=== PATIENT | male | born 1940 | race Asian ===

== ENCOUNTER 2020-12-15 04:59 | Inpatient (IN) | payer OTHER ==
[~2020-12-15] VITALS: Ht 167.6 cm; Wt 76.7 kg
[2020-12-15] MEDS ORDERED: DILTIAZEM HCL 125 MG in DEXTROSE 5%-WATER 100 ML IV STA (05:13)
[2020-12-15] MEDS ORDERED: DILTIAZEM HCL 5 MG/ML 5 ML VIAL IVP ONE (05:15)
[2020-12-15] MEDS ORDERED: PROPOFOL 1000 MG/ISO-OSM 100 ML IV PRN (05:15)
[2020-12-15] MEDS ORDERED: DILTIAZEM HCL 125 MG in DEXTROSE 5%-WATER 100 ML IV PRN (05:15)
[2020-12-15 05:23] LABS: BASOPHILS % (AUTO) 1.1 % (0.0-2.0); EOSINOPHILS % (AUTO) 0.4 % (1.0-6.0); HEMATOCRIT 36.6 % (41-53); HEMOGLOBIN 11.5 g/dL (13.5-17.5); LYMPHOCYTES # (AUTO) 1.7 K/uL (1.0-4.8); LYMPHOCYTES % (AUTO) 11.5 % (22.0-44.0); MEAN CORPUSCULAR HEMOGLOBIN 28.8 pg (26.0-34.0); MEAN CORPUSCULAR HGB CONC 31.3 G/dL (31.0-37.0); MEAN CORPUSCULAR VOLUME 92 fL (80-100); MONOCYTES % (AUTO) 7.1 % (2.0-9.0); NEUTROPHILS # (AUTO) 11.9 K/uL (1.8-7.7); NEUTROPHILS % (AUTO) 79.9 % (40.0-70.0); PLATELET COUNT (AUTO) 162 K/uL (150-450); RED BLOOD CELL COUNT(AUTO) 3.98 MIL/uL (4.50-5.90); RED CELL DISTRIBUTION WIDTH 14.9 % (11.5-14.5)
[2020-12-15] MEDS ORDERED: ACETAMINOPHEN 650 MG/ISO-OSM 65 ML IV ONE (05:30)
[2020-12-15] MEDS ORDERED: CefTRIAXone 1 GM/DEXTROSE 50 ML IV ONE (05:30)
[2020-12-15 05:33] LABS: ANION GAP 11 mmol/L (8-16); CALCIUM, TOTAL 8.1 mg/dL (8.8-10.5); CARBON DIOXIDE 23 mmol/L (22-29); CHLORIDE 102 mmol/L (98-107); CREATININE 1.49 mg/dL (0.60-1.30); GLOMERULAR FILTR. RATE CALC 45 mL/min (>60); GLUCOSE,RANDOM 195 mg/dL (70-110); POTASSIUM 4.6 mmol/L (3.5-5.1); SODIUM SERUM 136 mmol/L (136-145); UREA NITROGEN, BLOOD 28 mg/dL (7-18)
[2020-12-15 05:35] LABS: INR 1.3 (0.9-1.1); PROTHROMBIN TIME 13.3 SEC (9.4-11.6)
[2020-12-15 05:36] LABS: APPEARANCE,URINE CLOUDY (CLEAR); GLUCOSE, URINE (UA) NEGATIVE (NEGATIVE); KETONES,URINE NEGATIVE (NEGATIVE); LEUKOCYTE ESTERASE ,URINE SMALL (NEGATIVE); NITRATE,URINE NEGATIVE (NEGATIVE); OCCULT BLOOD,URINE LARGE (NEGATIVE); PH,URINE 5.5 (5.0-8.0); PROTEIN,URINE POS 1+ (NEGATIVE)
[2020-12-15] MEDS ORDERED: 0.9% SODIUM CHLORIDE 10 ML SYRINGE IVP PRN (05:45)
[2020-12-15] MEDS ORDERED: ACETAMINOPHEN 325 MG TABLET PO PRN ×2 (05:45→08:00)
[2020-12-15] MEDS ORDERED: ONDANSETRON HCL 4 MG/2 ML VIAL IVP PRN ×2 (05:45→08:00)
[2020-12-15 05:49] LABS: COVID AG,FIA SOURCE NASOPHARYNGEAL
[2020-12-15 05:55] LABS: ABG A-A DIFF O2 540.5 mmHg (10-20.0); ABG BASE EXCESS -4.9 mmol/L (-2.0-3.0); ABG CARBOXYHEMOGLOBIN 0.4 % (0.0-1.5); ABG HCO3 19.9 mmol/L (22.0-26.0); ABG METHEMOGLOBIN 0.3 % (0.0-1.5); ABG OXYGEN CONTENT 14.8 mL/dL (15.0-23.0); ABG OXYHEMOGLOBIN 93.3 % (94.0-100.0); ABG PH 7.163 (7.35-7.450); ABG TOTAL HEMOGLOBIN 11.2 G/dL (12.0-18.0); PO2, ARTERIAL BG 99.4 mmHg (71.0-79.0); SOURCE, BLOOD GAS ARTERIAL; TEMPERATURE, FAHRENHEIT, BG 101.8 FAHREN (96.0-98.6)
[2020-12-15 05:56] LABS: ABG PCO2 68 mmHg (35-45); O2 DEVICE,BLOOD GAS VENTILATOR (ROOM AIR); PEEP,BG 5 cm H2O; SITE, BLOOD GAS RT RADIAL; VT, ABG 475 ml
[2020-12-15 05:57] LABS: ALANINE AMINOTRANSFERASE 131 U/L (12-78); ALBUMIN 1.8 g/dL (3.4-5.0); ALKALINE PHOSPHATASE 160 U/L (46-116); ASPARTATE AMINOTRANSFERASE 144 U/L (15-37); BILIRUBIN,TOTAL 1.4 mg/dL (0.1-1.0); CREATINE KINASE, TOTAL ONLY 88 U/L (39-308); TOTAL PROTEIN, SERUM 6.7 g/dL (6.4-8.2)
[2020-12-15] MEDS ORDERED: SODIUM CHLORIDE 0.9% IV ONE (06:00)
[2020-12-15] MEDS ORDERED: HEPARIN SODIUM 25000 UNITS/D5W 250 ML IV PRN (06:00)
[2020-12-15] MEDS ORDERED: HEPARIN SODIUM,PORCINE 5,000 UNITS/ML VIAL IVP ONE ×2 (06:00→12:30)
[2020-12-15] MEDS ORDERED: HEPARIN SODIUM,PORCINE 5,000 UNITS/ML VIAL IVP PRN ×4 (06:00→12:30)
[2020-12-15 06:01] LABS: B-TYPE NATRIURETIC PEPTIDE 1160 pg/mL (0-100)
[2020-12-15 06:16] LABS: BILIRUBIN,URINE PRELIM. POSITIVE (NEGATIVE)
[2020-12-15 06:22] LABS: BACTERIA,URINE Few /HPF (None Seen); COARSE GRANULAR CASTS,URINE 0-2 /LPF (None Seen); SQUAMOUS EPITHELIAL CELL,UR Few /LPF (None Seen)
[2020-12-15 06:25] LABS: LACTIC ACID 4.8 mmol/L (0.4-2.0)
[2020-12-15 06:39] LABS: LACTATE DEHYDROGENASE 423 U/L (85-227)
[2020-12-15] MEDS ORDERED: AMIODARONE HCL 360 MG in DEXTROSE 5%-WATER 242.8 ML IV ONE (07:30)
[2020-12-15 08:00] VITALS: BP 94/66
[2020-12-15] MEDS ORDERED: REMDESIVIR 200 MG in SODIUM CHLORIDE 0.9% 250 ML IV ONE (08:00)
[2020-12-15] MEDS ORDERED: DEXTROSE 50%-WATER 25 GM/50 ML SYRINGE IVP PRN (08:00)
[2020-12-15 09:00] VITALS: BP 130/64
[2020-12-15] MEDS ORDERED: DEXAMETHASONE SOD PHOS 4 MG/ML VIAL IVP SCH (09:00)
[2020-12-15] MEDS ORDERED: FAMOTIDINE 20 MG TABLET PO SCH (09:00)
[2020-12-15] MEDS: DOCUSATE SODIUM 100 MG CAPSULE PO SCH ×2 (09:18→20:38)
[2020-12-15] MEDS: PANTOPRAZOLE SODIUM 40 MG/VIAL IVP SCH ×2 (09:28→20:38)
[2020-12-15 09:46] LABS: ABG A-A DIFF O2 568.6 mmHg (10-20.0); ABG BASE EXCESS -4.7 mmol/L (-2.0-3.0); ABG CARBOXYHEMOGLOBIN 0.3 % (0.0-1.5); ABG HCO3 20.6 mmol/L (22.0-26.0); ABG METHEMOGLOBIN 0.3 % (0.0-1.5); ABG OXYGEN SATURATION 97.2 % (95.0-98.0); ABG OXYHEMOGLOBIN 96.6 % (94.0-100.0); ABG PCO2 46 mmHg (35-45); ABG PH 7.297 (7.35-7.450); ABG TOTAL HEMOGLOBIN 11.7 G/dL (12.0-18.0); PO2, ARTERIAL BG 99.2 mmHg (71.0-79.0); SOURCE, BLOOD GAS ARTERIAL; TEMPERATURE, FAHRENHEIT, BG 98.4 FAHREN (96.0-98.6)
[2020-12-15 09:47] LABS: O2 DEVICE,BLOOD GAS VENTILATOR (ROOM AIR); PEEP,BG 5 cm H2O; SITE, BLOOD GAS RT BRACHIAL; VT, ABG 475 ml
[2020-12-15 10:00] VITALS: BP 139/72
[2020-12-15 12:00] VITALS: BP 99/45
[2020-12-15] MEDS: HEPARIN SODIUM 25000 UNITS/D5W 250 ML IV PRN (12:46)
[2020-12-15] MEDS ORDERED: AMIODARONE HCL 540 MG in DEXTROSE 5%-WATER 239.2 ML IV ONE (13:30)
[2020-12-15] MEDS: INSULIN LISPRO 100 UNITS/ML SQ PRN ×3 (14:49→21:32)
[2020-12-15] MEDS ORDERED: RINGERS SOLUTION,LACTATED 1,000 ML IV ONE ×2 (15:15→16:45)
[2020-12-15 16:00] VITALS: BP 86/60
[2020-12-15] MEDS ORDERED: AMIODARONE HCL 50 MG/ML 3 ML VIAL IVP ONE (17:16)
[2020-12-15] MEDS: CefTRIAXone SODIUM 2 GM in DEXTROSE 5%-WATER 50 ML IV SCH (17:38)
[2020-12-15] MEDS: NOREPINEPHRINE 4 MG/D5%-WATER 250 ML IV PRN (17:39)
[2020-12-15 17:52] LABS: C-REACTIVE PROTEIN QUANT 12.46 mg/dL (0.00-0.30); FERRITIN 3685 ng/mL (26-388)
[2020-12-15] MEDS: DOXYCYCLINE HYCLATE 100 MG in DEXTROSE 5%-WATER 100 ML IV SCH (18:30)
[2020-12-15] MEDS: FentaNYL CIT 1000MCG/0.9% NACL 100 ML IV PRN (18:30)
[2020-12-15] MEDS: MethylPREDNISolone SOD SUCC 125 MG/2 ML VIAL IVP SCH (18:46)
[2020-12-15 20:00] VITALS: BP 125/52
[2020-12-16] VITALS: BP 103/46
[2020-12-16] MEDS: MethylPREDNISolone SOD SUCC 125 MG/2 ML VIAL IVP SCH ×4 (00:11→19:42)
[2020-12-16 00:34] LABS: GLUCOSE,POINT OF CARE 192 MG/DL (70-110)
[2020-12-16 00:34] LABS: GLUCOSE,POINT OF CARE 165 MG/DL (70-110)
[2020-12-16 00:34] LABS: GLUCOSE,POINT OF CARE 200 MG/DL (70-110)
[2020-12-16] MEDS: PROPOFOL 1000 MG/ISO-OSM 100 ML IV PRN ×2 (01:46→17:20)
[2020-12-16] MEDS ORDERED: SODIUM CHLORIDE 0.9% 250 ML IV ONE ×3 (01:55→20:10)
[2020-12-16 04:00] VITALS: BP 127/81
[2020-12-16] MEDS: DOXYCYCLINE HYCLATE 100 MG in DEXTROSE 5%-WATER 100 ML IV SCH ×2 (05:08→19:43)
[2020-12-16 06:53] LABS: BASOPHILS % (AUTO) 0.2 % (0.0-2.0); EOSINOPHILS % (AUTO) 0.1 % (1.0-6.0); HEMATOCRIT 34.5 % (41-53); HEMOGLOBIN 11.1 g/dL (13.5-17.5); LYMPHOCYTES # (AUTO) 0.7 K/uL (1.0-4.8); LYMPHOCYTES % (AUTO) 6.7 % (22.0-44.0); MEAN CORPUSCULAR HEMOGLOBIN 29.1 pg (26.0-34.0); MEAN CORPUSCULAR HGB CONC 32.2 G/dL (31.0-37.0); MEAN CORPUSCULAR VOLUME 90 fL (80-100); MONOCYTES # (AUTO) 0.5 K/uL (0.1-1.0); MONOCYTES % (AUTO) 4.8 % (2.0-9.0); NEUTROPHILS # (AUTO) 9.2 K/uL (1.8-7.7); PLATELET COUNT (AUTO) 122 K/uL (150-450); RED BLOOD CELL COUNT(AUTO) 3.81 MIL/uL (4.50-5.90); RED CELL DISTRIBUTION WIDTH 14.9 % (11.5-14.5)
[2020-12-16 06:56] LABS: NEUTROPHILS % (AUTO) 88.2 % (40.0-70.0)
[2020-12-16] MEDS: NOREPINEPHRINE 4 MG/D5%-WATER 250 ML IV PRN ×2 (06:58→07:43)
[2020-12-16 07:14] LABS: D-DIMER 11.63 mg/L FEU (0.00-0.50)
[2020-12-16] MEDS ORDERED: AMIODARONE HCL 750 MG in DEXTROSE 5%-WATER 485 ML IV SCH (07:30)
[2020-12-16] MEDS: HEPARIN SODIUM 25000 UNITS/D5W 250 ML IV PRN (07:47)
[2020-12-16 07:55] LABS: ALBUMIN 1.6 g/dL (3.4-5.0); BILIRUBIN,TOTAL 0.6 mg/dL (0.1-1.0); C-REACTIVE PROTEIN QUANT 11.83 mg/dL (0.00-0.30); CALCIUM, TOTAL 7.5 mg/dL (8.8-10.5); CREATININE 2.08 mg/dL (0.60-1.30); POTASSIUM 4.2 mmol/L (3.5-5.1); TOTAL PROTEIN, SERUM 5.8 g/dL (6.4-8.2)
[2020-12-16 08:00] VITALS: BP 119/49
[2020-12-16] MEDS ORDERED: REMDESIVIR 100 MG in SODIUM CHLORIDE 0.9% 250 ML IV SCH (08:00)
[2020-12-16] MEDS: PANTOPRAZOLE SODIUM 40 MG/VIAL IVP SCH ×2 (10:00→20:38)
[2020-12-16] MEDS: DOCUSATE SODIUM 100 MG CAPSULE PO SCH ×2 (10:01→20:38)
[2020-12-16 12:00] VITALS: BP 122/45
[2020-12-16] MEDS: DAPTOMYCIN 450 MG in SODIUM CHLORIDE 0.9% 50 ML IV SCH (12:20)
[2020-12-16 16:00] VITALS: BP 135/49
[2020-12-16] MEDS: CefTRIAXone SODIUM 2 GM in DEXTROSE 5%-WATER 50 ML IV SCH (17:56)
[2020-12-16] MEDS: INSULIN LISPRO 100 UNITS/ML SQ PRN ×2 (17:58→20:50)
[2020-12-16 20:00] VITALS: BP 105/39
[2020-12-16 20:05] LABS: GLUCOSE,POINT OF CARE 184 MG/DL (70-110)
[2020-12-16 20:54] LABS: GLUCOSE,POINT OF CARE 179 MG/DL (70-110)
[2020-12-16 22:23] LABS: GLUCOSE,POINT OF CARE 179 MG/DL (70-110)
[2020-12-17] VITALS: BP 99/39
[2020-12-17] MEDS: MethylPREDNISolone SOD SUCC 125 MG/2 ML VIAL IVP SCH ×4 (00:03→18:22)
[2020-12-17] MEDS: NOREPINEPHRINE 4 MG/D5%-WATER 250 ML IV PRN ×2 (02:48→14:05)
[2020-12-17 04:00] VITALS: BP 120/44
[2020-12-17] MEDS: DOXYCYCLINE HYCLATE 100 MG in DEXTROSE 5%-WATER 100 ML IV SCH (04:59)
[2020-12-17 05:56] LABS: BASOPHILS % (AUTO) 0.1 % (0.0-2.0); EOSINOPHILS % (AUTO) 0 % (1.0-6.0); HEMATOCRIT 35.9 % (41-53); HEMOGLOBIN 11.7 g/dL (13.5-17.5); LYMPHOCYTES # (AUTO) 0.7 K/uL (1.0-4.8); LYMPHOCYTES % (AUTO) 5.4 % (22.0-44.0); MEAN CORPUSCULAR HEMOGLOBIN 29.1 pg (26.0-34.0); MEAN CORPUSCULAR HGB CONC 32.7 G/dL (31.0-37.0); MEAN CORPUSCULAR VOLUME 89 fL (80-100); MONOCYTES # (AUTO) 0.7 K/uL (0.1-1.0); MONOCYTES % (AUTO) 4.9 % (2.0-9.0); NEUTROPHILS # (AUTO) 12.3 K/uL (1.8-7.7); PLATELET COUNT (AUTO) 144 K/uL (150-450); RED BLOOD CELL COUNT(AUTO) 4.03 MIL/uL (4.50-5.90); RED CELL DISTRIBUTION WIDTH 15.1 % (11.5-14.5)
[2020-12-17] MEDS: INSULIN LISPRO 100 UNITS/ML SQ PRN ×3 (05:59→18:22)
[2020-12-17] MEDS: PROPOFOL 1000 MG/ISO-OSM 100 ML IV PRN ×2 (06:01→19:38)
[2020-12-17 06:04] LABS: NEUTROPHILS % (AUTO) 89.6 % (40.0-70.0)
[2020-12-17 06:08] LABS: D-DIMER 5.85 mg/L FEU (0.00-0.50)
[2020-12-17] MEDS: FentaNYL CIT 1000MCG/0.9% NACL 100 ML IV PRN (06:31)
[2020-12-17 06:49] LABS: ALBUMIN 1.5 g/dL (3.4-5.0); BILIRUBIN,TOTAL 0.5 mg/dL (0.1-1.0); C-REACTIVE PROTEIN QUANT 7.46 mg/dL (0.00-0.30); CALCIUM, TOTAL 7.4 mg/dL (8.8-10.5); CREATININE 2.43 mg/dL (0.60-1.30); POTASSIUM 3.7 mmol/L (3.5-5.1); TOTAL PROTEIN, SERUM 5.7 g/dL (6.4-8.2)
[2020-12-17 06:55] LABS: GLUCOSE,POINT OF CARE 215 MG/DL (70-110)
[2020-12-17 08:00] VITALS: BP 144/41
[2020-12-17] MEDS: PANTOPRAZOLE SODIUM 40 MG/VIAL IVP SCH ×2 (09:00→20:56)
[2020-12-17] MEDS: DOCUSATE SODIUM 100 MG CAPSULE PO SCH ×2 (09:00→20:57)
[2020-12-17] MEDS: AMIODARONE HCL 200 MG TABLET PO SCH ×3 (09:00→20:56)
[2020-12-17] MEDS: DAPTOMYCIN 450 MG in SODIUM CHLORIDE 0.9% 50 ML IV SCH (10:57)
[2020-12-17 12:00] VITALS: BP 116/43
[2020-12-17 13:40] LABS: GLUCOSE,POINT OF CARE 200 MG/DL (70-110)
[2020-12-17] MEDS: CITRIC ACID/SODIUM CITRATE 30 ML SOLUTION UDCUP PO SCH ×2 (14:03→20:56)
[2020-12-17 15:17] LABS: APPEARANCE,URINE CLOUDY (CLEAR); BILIRUBIN,URINE NEGATIVE (NEGATIVE); GLUCOSE, URINE (UA) NEGATIVE (NEGATIVE); KETONES,URINE NEGATIVE (NEGATIVE); LEUKOCYTE ESTERASE ,URINE SMALL (NEGATIVE); NITRATE,URINE NEGATIVE (NEGATIVE); OCCULT BLOOD,URINE MODERATE (NEGATIVE); PH,URINE 5.5 (5.0-8.0); PROTEIN,URINE NEGATIVE (NEGATIVE); UROBILINOGEN,URINE 0.2 mg/dL (<=1.0)
[2020-12-17 15:34] LABS: BACTERIA,URINE Few /HPF (None Seen); SQUAMOUS EPITHELIAL CELL,UR Few /LPF (None Seen)
[2020-12-17 16:00] VITALS: BP 108/36
[2020-12-17] MEDS: CefTRIAXone SODIUM 2 GM in DEXTROSE 5%-WATER 50 ML IV SCH (16:18)
[2020-12-17] MEDS: HEPARIN SODIUM 25000 UNITS/D5W 250 ML IV PRN (16:22)
[2020-12-17 20:00] VITALS: BP 130/45
[2020-12-17] MEDS ORDERED: LORazepam 2 MG/ML VIAL IVP PRN (20:00)
[2020-12-17 21:05] LABS: S PNEUMO SOURCE Urine; STREP PNEUMONIAE AG URINE Negative (Negative)
[2020-12-17 22:11] LABS: GLUCOSE,POINT OF CARE 174 MG/DL (70-110)
[2020-12-18] VITALS: BP 126/42
[2020-12-18] MEDS: MethylPREDNISolone SOD SUCC 125 MG/2 ML VIAL IVP SCH ×4 (00:24→17:41)
[2020-12-18] MEDS: INSULIN LISPRO 100 UNITS/ML SQ PRN ×4 (00:36→19:04)
[2020-12-18 04:00] VITALS: BP 131/43
[2020-12-18 04:45] LABS: BASOPHILS % (AUTO) 0.2 % (0.0-2.0); EOSINOPHILS % (AUTO) 0 % (1.0-6.0); HEMATOCRIT 38.5 % (41-53); HEMOGLOBIN 12.3 g/dL (13.5-17.5); LYMPHOCYTES # (AUTO) 0.9 K/uL (1.0-4.8); MEAN CORPUSCULAR HEMOGLOBIN 28.4 pg (26.0-34.0); MEAN CORPUSCULAR HGB CONC 31.9 G/dL (31.0-37.0); MEAN CORPUSCULAR VOLUME 89 fL (80-100); MONOCYTES # (AUTO) 1.1 K/uL (0.1-1.0); NEUTROPHILS # (AUTO) 16.5 K/uL (1.8-7.7); PLATELET COUNT (AUTO) 188 K/uL (150-450); RED BLOOD CELL COUNT(AUTO) 4.32 MIL/uL (4.50-5.90); RED CELL DISTRIBUTION WIDTH 14.9 % (11.5-14.5)
[2020-12-18 04:59] LABS: NEUTROPHILS % (AUTO) 88.8 % (40.0-70.0)
[2020-12-18 05:01] LABS: ALBUMIN 1.6 g/dL (3.4-5.0); BILIRUBIN,TOTAL 0.5 mg/dL (0.1-1.0); CALCIUM, TOTAL 7.5 mg/dL (8.8-10.5); CREATININE 2.69 mg/dL (0.60-1.30); MAGNESIUM 2.5 mg/dL (1.80-2.40); POTASSIUM 3.6 mmol/L (3.5-5.1); TOTAL PROTEIN, SERUM 5.8 g/dL (6.4-8.2)
[2020-12-18 08:00] VITALS: BP 136/40
[2020-12-18] MEDS: DOCUSATE SODIUM 100 MG CAPSULE PO SCH ×2 (09:22→21:00)
[2020-12-18] MEDS: CITRIC ACID/SODIUM CITRATE 30 ML SOLUTION UDCUP PO SCH ×2 (09:22→21:00)
[2020-12-18] MEDS: AMIODARONE HCL 200 MG TABLET PO SCH ×3 (09:22→21:00)
[2020-12-18] MEDS: PANTOPRAZOLE SODIUM 40 MG/VIAL IVP SCH ×2 (09:23→21:46)
[2020-12-18] MEDS: NOREPINEPHRINE 4 MG/D5%-WATER 250 ML IV PRN (09:26)
[2020-12-18 10:55] LABS: ABG BASE EXCESS -0.9 mmol/L (-2.0-3.0); ABG CARBOXYHEMOGLOBIN 0.5 % (0.0-1.5); ABG HCO3 24.4 mmol/L (22.0-26.0); ABG METHEMOGLOBIN 0.3 % (0.0-1.5); ABG OXYGEN CONTENT 17.2 mL/dL (15.0-23.0); ABG OXYGEN SATURATION 95.5 % (95.0-98.0); ABG OXYHEMOGLOBIN 94.7 % (94.0-100.0); ABG PCO2 31 mmHg (35-45); ABG TOTAL HEMOGLOBIN 12.9 G/dL (12.0-18.0); CPAP, BG 5 cm H2O; O2 DEVICE,BLOOD GAS VENTILATOR (ROOM AIR); PO2, ARTERIAL BG 74.4 mmHg (71.0-79.0); PRESSURE SUPPORT, BG 8 cm H2O; SITE, BLOOD GAS LFT RADIAL; SOURCE, BLOOD GAS ARTERIAL; SPONTANEOUS VT, BG 625 ml; TEMPERATURE, FAHRENHEIT, BG 98.4 FAHREN (96.0-98.6); VENT MODE, BG CPAP (ROOM AIR)
[2020-12-18 12:00] VITALS: BP 110/41
[2020-12-18] MEDS ORDERED: AMIODARONE HCL 150 MG in DEXTROSE 5%-WATER 97 ML IV ONE (13:50)
[2020-12-18] MEDS ORDERED: AMIODARONE HCL 360 MG in DEXTROSE 5%-WATER 242.8 ML IV ONE (14:00)
[2020-12-18 14:04] LABS: GLUCOSE,POINT OF CARE 221 MG/DL (70-110)
[2020-12-18 14:04] LABS: GLUCOSE,POINT OF CARE 177 MG/DL (70-110)
[2020-12-18 16:00] VITALS: BP 101/51
[2020-12-18] MEDS: CefTRIAXone SODIUM 2 GM in DEXTROSE 5%-WATER 50 ML IV SCH (17:40)
[2020-12-18] MEDS ORDERED: AMIODARONE HCL 540 MG in DEXTROSE 5%-WATER 239.2 ML IV ONE (20:00)
[2020-12-18 20:06] VITALS: BP 114/52
[2020-12-19 00:06] VITALS: BP 117/43
[2020-12-19] MEDS: MethylPREDNISolone SOD SUCC 40 MG/ML VIAL IVP SCH ×5 (00:15→23:21)
[2020-12-19] MEDS: INSULIN LISPRO 100 UNITS/ML SQ PRN ×5 (00:16→23:26)
[2020-12-19 04:02] VITALS: BP 129/48
[2020-12-19 05:07] LABS: GLUCOSE,POINT OF CARE 193 MG/DL (70-110)
[2020-12-19 05:07] LABS: GLUCOSE,POINT OF CARE 171 MG/DL (70-110)
[2020-12-19 05:07] LABS: GLUCOSE,POINT OF CARE 199 MG/DL (70-110)
[2020-12-19 07:01] LABS: BASOPHILS % (AUTO) 0.1 % (0.0-2.0); EOSINOPHILS % (AUTO) 0 % (1.0-6.0); HEMATOCRIT 35.7 % (41-53); HEMOGLOBIN 11.5 g/dL (13.5-17.5); LYMPHOCYTES # (AUTO) 0.8 K/uL (1.0-4.8); LYMPHOCYTES % (AUTO) 5.6 % (22.0-44.0); MEAN CORPUSCULAR HEMOGLOBIN 28.5 pg (26.0-34.0); MEAN CORPUSCULAR HGB CONC 32.3 G/dL (31.0-37.0); MEAN CORPUSCULAR VOLUME 89 fL (80-100); MONOCYTES # (AUTO) 0.9 K/uL (0.1-1.0); MONOCYTES % (AUTO) 6.7 % (2.0-9.0); NEUTROPHILS # (AUTO) 12.2 K/uL (1.8-7.7); PLATELET COUNT (AUTO) 141 K/uL (150-450); RED BLOOD CELL COUNT(AUTO) 4.04 MIL/uL (4.50-5.90)
[2020-12-19 07:48] LABS: NEUTROPHILS % (AUTO) 87.6 % (40.0-70.0)
[2020-12-19 07:57] LABS: ALBUMIN 1.6 g/dL (3.4-5.0); BILIRUBIN,TOTAL 0.6 mg/dL (0.1-1.0); C-REACTIVE PROTEIN QUANT 2.73 mg/dL (0.00-0.30); CALCIUM, TOTAL 7.4 mg/dL (8.8-10.5); CREATININE 2.64 mg/dL (0.60-1.30); POTASSIUM 3.5 mmol/L (3.5-5.1); TOTAL PROTEIN, SERUM 5.4 g/dL (6.4-8.2)
[2020-12-19 08:01] VITALS: BP 111/37
[2020-12-19 08:12] LABS: GLUCOSE,POINT OF CARE 172 MG/DL (70-110)
[2020-12-19] MEDS: PANTOPRAZOLE SODIUM 40 MG/VIAL IVP SCH ×2 (08:41→21:55)
[2020-12-19] MEDS: CITRIC ACID/SODIUM CITRATE 30 ML SOLUTION UDCUP PO SCH ×2 (09:00→23:18)
[2020-12-19] MEDS: AMIODARONE HCL 200 MG TABLET PO SCH ×3 (09:00→21:56)
[2020-12-19] MEDS: DOCUSATE SODIUM 100 MG CAPSULE PO SCH ×2 (09:00→21:56)
[2020-12-19] MEDS: ETHYL ALCOHOL 62% ANTISEPTIC NASAL INHALANT 0.6 ML AMPUL NASAL SCH ×2 (09:15→21:55)
[2020-12-19] MEDS ORDERED: DAPTOMYCIN 450 MG in SODIUM CHLORIDE 0.9% 50 ML IV SCH (11:00)
[2020-12-19 12:00] VITALS: BP 126/49
[2020-12-19] MEDS ORDERED: SODIUM CHLORIDE 0.9% 1,000 ML ONE (13:27)
[2020-12-19] MEDS ORDERED: AMIODARONE HCL 750 MG in DEXTROSE 5%-WATER 485 ML IV SCH (14:00)
[2020-12-19] MEDS ORDERED: SODIUM CHLORIDE 0.9% 250 ML IV ONE (15:41)
[2020-12-19] MEDS: CefTRIAXone SODIUM 2 GM in DEXTROSE 5%-WATER 50 ML IV SCH (15:47)
[2020-12-19 16:00] VITALS: BP 125/46
[2020-12-19 19:23] LABS: GLUCOSE,POINT OF CARE 175 MG/DL (70-110)
[2020-12-19 20:01] VITALS: BP 136/58
[2020-12-19 20:19] LABS: GLUCOSE,POINT OF CARE 156 MG/DL (70-110)
[2020-12-19] MEDS: HEPARIN SODIUM 25000 UNITS/D5W 250 ML IV PRN (23:41)
[2020-12-20 00:01] VITALS: BP 152/55
[2020-12-20] MEDS ORDERED: SODIUM CHLORIDE 0.9% 250 ML IV ONE ×2 (03:33→16:57)
[2020-12-20 04:02] VITALS: BP 141/61
[2020-12-20 04:52] LABS: GLUCOSE,POINT OF CARE 172 MG/DL (70-110)
[2020-12-20 05:22] LABS: BASOPHILS % (AUTO) 0.1 % (0.0-2.0); EOSINOPHILS % (AUTO) 0 % (1.0-6.0); HEMATOCRIT 34.3 % (41-53); HEMOGLOBIN 11.1 g/dL (13.5-17.5); LYMPHOCYTES # (AUTO) 0.4 K/uL (1.0-4.8); LYMPHOCYTES % (AUTO) 2.9 % (22.0-44.0); MEAN CORPUSCULAR HEMOGLOBIN 28.9 pg (26.0-34.0); MEAN CORPUSCULAR HGB CONC 32.4 G/dL (31.0-37.0); MEAN CORPUSCULAR VOLUME 89 fL (80-100); MONOCYTES # (AUTO) 1.1 K/uL (0.1-1.0); MONOCYTES % (AUTO) 8.6 % (2.0-9.0); NEUTROPHILS # (AUTO) 11.2 K/uL (1.8-7.7); PLATELET COUNT (AUTO) 129 K/uL (150-450); RED BLOOD CELL COUNT(AUTO) 3.85 MIL/uL (4.50-5.90)
[2020-12-20 05:28] LABS: NEUTROPHILS % (AUTO) 88.4 % (40.0-70.0)
[2020-12-20 05:46] LABS: ALBUMIN 1.6 g/dL (3.4-5.0); BILIRUBIN,TOTAL 0.6 mg/dL (0.1-1.0); CALCIUM, TOTAL 7.4 mg/dL (8.8-10.5); CREATININE 2.52 mg/dL (0.60-1.30); POTASSIUM 3.6 mmol/L (3.5-5.1); TOTAL PROTEIN, SERUM 5.1 g/dL (6.4-8.2)
[2020-12-20] MEDS: MethylPREDNISolone SOD SUCC 40 MG/ML VIAL IVP SCH ×3 (06:36→19:02)
[2020-12-20] MEDS: INSULIN LISPRO 100 UNITS/ML SQ PRN ×2 (06:38→12:54)
[2020-12-20 08:00] VITALS: BP 143/48
[2020-12-20 08:13] LABS: GLUCOSE,POINT OF CARE 149 MG/DL (70-110)
[2020-12-20] MEDS: AMIODARONE HCL 200 MG TABLET PO SCH ×2 (09:55→20:36)
[2020-12-20] MEDS: DOCUSATE SODIUM 100 MG CAPSULE PO SCH ×2 (09:55→20:35)
[2020-12-20] MEDS: ETHYL ALCOHOL 62% ANTISEPTIC NASAL INHALANT 0.6 ML AMPUL NASAL SCH ×2 (09:55→20:35)
[2020-12-20] MEDS: PANTOPRAZOLE SODIUM 40 MG/VIAL IVP SCH ×2 (09:56→20:35)
[2020-12-20 12:00] VITALS: BP 146/55
[2020-12-20 14:22] LABS: GLUCOSE,POINT OF CARE 151 MG/DL (70-110)
[2020-12-20 16:00] VITALS: BP 151/48
[2020-12-20] MEDS: CefTRIAXone SODIUM 2 GM in DEXTROSE 5%-WATER 50 ML IV SCH (16:47)
[2020-12-20 17:46] LABS: GLUCOSE,POINT OF CARE 130 MG/DL (70-110)
[2020-12-20 20:00] VITALS: BP 148/85
[2020-12-20] MEDS: APIXABAN 2.5 MG TABLET PO SCH (20:36)
[2020-12-20] MEDS ORDERED: APIXABAN 5 MG TABLET PO SCH (21:00)
[2020-12-21] VITALS (7 sets, daily range): BP systolic 141–176; BP diastolic 50–89
[2020-12-21] MEDS: MethylPREDNISolone SOD SUCC 40 MG/ML VIAL IVP SCH ×2 (00:27→06:16)
[2020-12-21] MEDS: AMPICILLIN SODIUM 2 GM/NS 100 ML IV SCH ×4 (00:27→23:00)
[2020-12-21] MEDS: CefTRIAXone SODIUM 2 GM in DEXTROSE 5%-WATER 50 ML IV SCH ×2 (04:00→15:53)
[2020-12-21 05:33] LABS: CALCIUM, TOTAL 7.6 mg/dL (8.8-10.5); CREATININE 2.26 mg/dL (0.60-1.30); POTASSIUM 4.1 mmol/L (3.5-5.1)
[2020-12-21] MEDS: INSULIN LISPRO 100 UNITS/ML SQ PRN ×2 (06:44→17:26)
[2020-12-21 07:18] LABS: GLUCOSE,POINT OF CARE 131 MG/DL (70-110)
[2020-12-21] MEDS: AMIODARONE HCL 200 MG TABLET PO SCH ×2 (09:36→19:39)
[2020-12-21] MEDS: PANTOPRAZOLE SODIUM 40 MG/VIAL IVP SCH ×2 (09:36→19:38)
[2020-12-21] MEDS: APIXABAN 2.5 MG TABLET PO SCH ×2 (09:36→19:38)
[2020-12-21] MEDS: DOCUSATE SODIUM 100 MG CAPSULE PO SCH ×2 (09:36→19:39)
[2020-12-21] MEDS: ETHYL ALCOHOL 62% ANTISEPTIC NASAL INHALANT 0.6 ML AMPUL NASAL SCH ×2 (09:51→19:37)
[2020-12-21 17:18] LABS: GLUCOSE,POINT OF CARE 167 MG/DL (70-110)
[2020-12-22 00:15] VITALS: BP 157/57
[2020-12-22 00:36] LABS: GLUCOMETER DEV NAME(LOC) 5S.2B; GLUCOSE,POINT OF CARE 152 MG/DL (70-110)
[2020-12-22 00:36] LABS: GLUCOMETER DEV NAME(LOC) 5S.2B; GLUCOSE,POINT OF CARE 140 MG/DL (70-110)
[2020-12-22] MEDS: CefTRIAXone SODIUM 2 GM in DEXTROSE 5%-WATER 50 ML IV SCH ×2 (03:12→16:18)
[2020-12-22 04:11] VITALS: BP 159/97
[2020-12-22] MEDS ORDERED: ALBUTEROL SULFATE 2.5 MG/0.5 ML NEB SOLUTION NEB PRN (04:30)
[2020-12-22] MEDS ORDERED: MORPHINE SULFATE 2 MG/ML SYRINGE IVP ONE (04:30)
[2020-12-22] MEDS ORDERED: DIGOXIN 250 MCG/ML 2 ML AMP IVP ONE (04:45)
[2020-12-22 05:12] LABS: ABG PCO2 36 mmHg (35-45); ABG PH 7.486 (7.35-7.450); SITE, BLOOD GAS RT RADIAL; SOURCE, BLOOD GAS ARTERIAL; TEMPERATURE, FAHRENHEIT, BG 98.6 FAHREN (96.0-98.6)
[2020-12-22 05:13] LABS: ABG BASE EXCESS 2.8 mmol/L (-2.0-3.0); ABG HCO3 27.2 mmol/L (22.0-26.0); ABG METHEMOGLOBIN 0.3 % (0.0-1.5); ABG OXYGEN CONTENT 18.5 mL/dL (15.0-23.0); ABG OXYHEMOGLOBIN 95.7 % (94.0-100.0); ABG TOTAL HEMOGLOBIN 13.7 G/dL (12.0-18.0); PO2, ARTERIAL BG 89.2 mmHg (71.0-79.0)
[2020-12-22 05:14] LABS: O2 DEVICE,BLOOD GAS BIPAP (ROOM AIR)
[2020-12-22 05:20] LABS: BASOPHILS % (AUTO) 0.2 % (0.0-2.0); EOSINOPHILS % (AUTO) 0.5 % (1.0-6.0); HEMATOCRIT 40.2 % (41-53); HEMOGLOBIN 12.7 g/dL (13.5-17.5); LYMPHOCYTES # (AUTO) 0.5 K/uL (1.0-4.8); LYMPHOCYTES % (AUTO) 3.3 % (22.0-44.0); MEAN CORPUSCULAR HEMOGLOBIN 28.5 pg (26.0-34.0); MEAN CORPUSCULAR HGB CONC 31.7 G/dL (31.0-37.0); MEAN CORPUSCULAR VOLUME 90 fL (80-100); MONOCYTES # (AUTO) 1.5 K/uL (0.1-1.0); MONOCYTES % (AUTO) 10.1 % (2.0-9.0); NEUTROPHILS # (AUTO) 12.9 K/uL (1.8-7.7); PLATELET COUNT (AUTO) 148 K/uL (150-450); RED BLOOD CELL COUNT(AUTO) 4.47 MIL/uL (4.50-5.90); RED CELL DISTRIBUTION WIDTH 15.1 % (11.5-14.5)
[2020-12-22 05:22] LABS: NEUTROPHILS % (AUTO) 85.9 % (40.0-70.0)
[2020-12-22] MEDS: IPRATROPIUM BROMIDE 0.5 MG/2.5 ML NEB SOLUTION NEB PRN (05:24)
[2020-12-22 05:31] LABS: CALCIUM, TOTAL 7.7 mg/dL (8.8-10.5); CREATININE 1.85 mg/dL (0.60-1.30)
[2020-12-22] MEDS ORDERED: IPRATROPIUM BROMIDE 0.5 MG/2.5 ML NEB SOLUTION NEB SCH (07:00)
[2020-12-22 07:31] VITALS: BP 142/71
[2020-12-22] MEDS: AMIODARONE HCL 200 MG TABLET PO SCH ×2 (09:02→20:03)
[2020-12-22] MEDS: PANTOPRAZOLE SODIUM 40 MG/VIAL IVP SCH ×2 (09:02→20:04)
[2020-12-22] MEDS: PredniSONE 20 MG TABLET PO SCH (09:03)
[2020-12-22] MEDS: DOCUSATE SODIUM 100 MG CAPSULE PO SCH ×2 (09:03→20:03)
[2020-12-22] MEDS: AMPICILLIN SODIUM 2 GM/NS 100 ML IV SCH ×3 (09:03→20:01)
[2020-12-22] MEDS: ETHYL ALCOHOL 62% ANTISEPTIC NASAL INHALANT 0.6 ML AMPUL NASAL SCH ×2 (09:03→20:05)
[2020-12-22] MEDS: APIXABAN 2.5 MG TABLET PO SCH ×2 (09:03→20:04)
[2020-12-22 10:31] LABS: INR 1.1 (0.9-1.1); PROTHROMBIN TIME 11.6 SEC (9.4-11.6)
[2020-12-22 11:21] VITALS: BP 131/78
[2020-12-22 11:45] LABS: GLUCOMETER DEV NAME(LOC) 5S.1; GLUCOSE,POINT OF CARE 127 MG/DL (70-110)
[2020-12-22] MEDS: METOPROLOL TARTRATE 25 MG TABLET PO SCH (13:32)
[2020-12-22 16:36] VITALS: BP 139/64
[2020-12-22 17:22] LABS: COVID AG,FIA SOURCE NASOPHARYNGEAL
[2020-12-22 17:37] LABS: GLUCOMETER DEV NAME(LOC) 5S.2B; GLUCOSE,POINT OF CARE 103 MG/DL (70-110)
[2020-12-22 19:26] VITALS: BP 145/72
[2020-12-22 22:15] LABS: GLUCOMETER DEV NAME(LOC) 5S.1; GLUCOSE,POINT OF CARE 122 MG/DL (70-110)
[2020-12-22 22:16] LABS: GLUCOMETER DEV NAME(LOC) 5S.1; GLUCOSE,POINT OF CARE 122 MG/DL (70-110)
[2020-12-23 00:14] VITALS: BP 144/55
[2020-12-23] MEDS: AMPICILLIN SODIUM 2 GM/NS 100 ML IV SCH ×2 (02:51→09:01)
[2020-12-23 04:21] VITALS: BP 156/63
[2020-12-23] MEDS: CefTRIAXone SODIUM 2 GM in DEXTROSE 5%-WATER 50 ML IV SCH (04:45)
[2020-12-23] MEDS: IPRATROPIUM BROMIDE 0.5 MG/2.5 ML NEB SOLUTION NEB PRN (05:56)
[2020-12-23] MEDS: INSULIN LISPRO 100 UNITS/ML SQ PRN (06:47)
[2020-12-23 07:22] LABS: BASOPHILS % (AUTO) 0.1 % (0.0-2.0); EOSINOPHILS % (AUTO) 0.1 % (1.0-6.0); HEMATOCRIT 39.8 % (41-53); HEMOGLOBIN 12.7 g/dL (13.5-17.5); LYMPHOCYTES # (AUTO) 0.6 K/uL (1.0-4.8); LYMPHOCYTES % (AUTO) 3.8 % (22.0-44.0); MEAN CORPUSCULAR HEMOGLOBIN 29.3 pg (26.0-34.0); MEAN CORPUSCULAR HGB CONC 31.9 G/dL (31.0-37.0); MEAN CORPUSCULAR VOLUME 92 fL (80-100); MONOCYTES # (AUTO) 1.2 K/uL (0.1-1.0); MONOCYTES % (AUTO) 8.2 % (2.0-9.0); NEUTROPHILS # (AUTO) 13.1 K/uL (1.8-7.7); PLATELET COUNT (AUTO) 156 K/uL (150-450); RED BLOOD CELL COUNT(AUTO) 4.34 MIL/uL (4.50-5.90)
[2020-12-23 07:29] LABS: NEUTROPHILS % (AUTO) 87.8 % (40.0-70.0)
[2020-12-23 07:35] VITALS: BP 119/48
[2020-12-23 07:36] LABS: ALBUMIN 1.9 g/dL (3.4-5.0); BILIRUBIN,TOTAL 0.8 mg/dL (0.1-1.0); CALCIUM, TOTAL 7.8 mg/dL (8.8-10.5); CREATININE 1.85 mg/dL (0.60-1.30); POTASSIUM 4.5 mmol/L (3.5-5.1); TOTAL PROTEIN, SERUM 6.2 g/dL (6.4-8.2)
[2020-12-23] MEDS: DOCUSATE SODIUM 100 MG CAPSULE PO SCH (09:00)
[2020-12-23] MEDS: ETHYL ALCOHOL 62% ANTISEPTIC NASAL INHALANT 0.6 ML AMPUL NASAL SCH (09:01)
[2020-12-23] MEDS: PANTOPRAZOLE SODIUM 40 MG/VIAL IVP SCH (09:35)
[2020-12-23] MEDS: METOPROLOL TARTRATE 25 MG TABLET PO SCH (09:36)
[2020-12-23] MEDS: AMIODARONE HCL 200 MG TABLET PO SCH (09:36)
[2020-12-23] MEDS: PredniSONE 20 MG TABLET PO SCH (09:36)
[2020-12-23] MEDS: APIXABAN 2.5 MG TABLET PO SCH (09:36)
[2020-12-23 11:00] VITALS: BP 135/62
[2020-12-23 15:02] LABS: MAGNESIUM 2.7 mg/dL (1.80-2.40); PHOSPHORUS 6.2 mg/dL (2.5-4.9)
[2020-12-25 03:27] LABS: GLUCOMETER DEV NAME(LOC) 5S.1; GLUCOSE,POINT OF CARE 115 MG/DL (70-110)
[2020-12-25 03:27] LABS: GLUCOMETER DEV NAME(LOC) 5S.1; GLUCOSE,POINT OF CARE 171 MG/DL (70-110)
== END 2020-12-23 11:32 | DRG 871 ==
LOC: EMS 05:00 → ICU 09:47 → 5S 12-21 16:20
PROVIDERS: ADMIT Internal Medicine; ATTEND Internal Medicine
PROC: 5A1945Z Respiratory Ventilation, 24-96 Consecutive Hours (ICD-10-PCS; principal; 2020-12-15)
PROC: 0BH17EZ Insertion of Endotracheal Airway into Trachea, Via Natural or Artificial Opening (ICD-10-PCS; 2020-12-15)
PROC: XW033E5 Introduction of Remdesivir Anti-infective into Peripheral Vein, Percutaneous Approach, New Technology Group 5 (ICD-10-PCS; 2020-12-15)
PROC: 5A09357 Assistance with Respiratory Ventilation, Less than 24 Consecutive Hours, Continuous Positive Airway Pressure (ICD-10-PCS; 2020-12-15)
DX: A41.89 Other specified sepsis (principal); J18.9 Pneumonia, unspecified organism; J96.01 Acute respiratory failure with hypoxia; J96.02 Acute respiratory failure with hypercapnia; G92 Toxic encephalopathy; R65.21 Severe sepsis with septic shock; U07.1 COVID-19; N17.0 Acute kidney failure with tubular necrosis; I21.A1 Myocardial infarction type 2; Z99.11 Dependence on respirator [ventilator] status; E87.1 Hypo-osmolality and hyponatremia; E87.0 Hyperosmolality and hypernatremia; J43.9 Emphysema, unspecified; Z20.822 Contact with and (suspected) exposure to COVID-19; I12.9 Hypertensive chronic kidney disease with stage 1 through stage 4 chronic kidney disease, or unspecified chronic kidney disease; R74.01 Elevation of levels of liver transaminase levels; R79.82 Elevated C-reactive protein (CRP); J20.9 Acute bronchitis, unspecified; F17.210 Nicotine dependence, cigarettes, uncomplicated; D64.9 Anemia, unspecified; I25.5 Ischemic cardiomyopathy; I48.0 Paroxysmal atrial fibrillation; E11.22 Type 2 diabetes mellitus with diabetic chronic kidney disease; N18.9 Chronic kidney disease, unspecified; I35.8 Other nonrheumatic aortic valve disorders; D69.6 Thrombocytopenia, unspecified; Z79.899 Other long term (current) drug therapy
CPT/HCPCS: 36569; 36600; 71045; 71250; 74176; 76700; 80048; 80053; 81001; 82550; 82570; 82728; 82805; 82962; 83605; 83615; 83735; 83880; 84100; 84145; 84156; 84484; 85025; 85379; 85610; 85730; 86140; 86160; 87040; 87070; 87077; 87081; 87086; 87186; 87205; 87449; 87899; 92526; 92610; 93005; 93306; 93312; 94002; 94003; 94640; 94660; 97163; 97167; 97530; 97535; 99291; A9575; C9113; G0378; J0131; J0282; J0290; J0696; J0878; J1100; J1160; J1644; J2270; J2704; J2920; J2930; J3490; J7030; J7050; J7060; J7120; 36415-L1; 36415-TC; U0003